=== PATIENT | female | born 1975 | race Caucasian/White ===

== ENCOUNTER 2016-05-22 10:58 | Emergency (ER) | payer OTHER ==
[2016-05-22] MEDS ORDERED: ONDANSETRON 4 MG TAB.RAPDIS PO ONE (11:20)
[2016-05-22] MEDS ORDERED: NORMAL SALINE 1000 ML 2,000 ML IV ONE (11:20)
--- NOTE | 2016-05-22 11:20 | ER Document Report ---
ED Medical Screen (RME) - General Chief Complaint: Vomiting Stated Complaint: NAUSEA/VOMITING Time seen by provider: 11:19 Mode of Arrival: Ambulatory Information source: Patient Notes: 40-year-old female with nausea and vomiting since last evening. She started feeling ill in the morning. She has no urinary symptoms. She has chills without fever. No specific abdominal pain but she does point to her epigastrium. No abdominal surgeries. No alcohol last night. She is a smoker. TRAVEL OUTSIDE OF THE [place] IN LAST 30 DAYS: No - Related Data Allergies/Adverse Reactions: Sulfa (Sulfonamide Antibiotics) Allergy (Verified 04/24/16 12:59) Past Medical History - Past Medical History Cardiac Medical History: Reports: Hx Hypertension Past Surgical History: Reports: Hx Breast Surgery - LIFT, Hx Dilation and Curettage, Hx Gynecologic Surgery - uterine polyp, Hx Myringotomy - Immunizations Hx Diphtheria, Pertussis, Tetanus Vaccination: Yes
[2016-05-22 12:06] LABS: ABSOLUTE LYMPHOCYTES (AUTO) 0.6 10^3/uL (0.5-4.7); ABSOLUTE MONOCYTES (AUTO) 0.1 10^3/uL (0.1-1.4); ABSOLUTE NEUT (AUTO) 5.8 10^3/uL (1.7-8.2); BASOPHILS % (AUTO) 0.2 % (0-2); HEMATOCRIT 44.4 % (36.0-47.0); HEMOGLOBIN 15.6 g/dL (12.0-15.5); HGB HCT DIFFERENCE 2.4; LYMPHOCYTES % (AUTO) 9.3 % (13-45); MEAN CORPUSCULAR HEMOGLOBIN 34.5 pg (27.0-33.4); MEAN CORPUSCULAR HGB CONC 35.2 g/dL (32.0-36.0); MEAN CORPUSCULAR VOLUME 98 fl (80-97); MONOCYTES % (AUTO) 2.1 % (3-13); RED BLOOD COUNT 4.52 10^6/uL (3.72-5.28); RED CELL DISTRIBUTION WIDTH 12.8 % (11.5-14.0); SEGMENTED NEUTROPHILS % (AUTO) 88.4 % (42-78); WHITE BLOOD COUNT 6.5 10^3/uL (4.0-10.5)
[2016-05-22 12:09] LABS: AMORPHOUS SEDIMENT,URINE TRACE /HPF; APPEARANCE,URINE CLOUDY; BILIRUBIN,URINE SMALL (NEGATIVE); GLUCOSE, URINE 50 mg/dL (NEGATIVE); KETONES,URINE 80 mg/dL (NEGATIVE); LEUKOCYTE ESTERASE,URINE NEGATIVE (NEGATIVE); NITRITE,URINE NEGATIVE (NEGATIVE); PROTEIN,URINE 100 mg/dL (NEGATIVE); URINE SPECIFIC GRAVITY 1.032; UROBILINOGEN,URINE NEGATIVE mg/dL (<2.0)
--- NOTE | 2016-05-22 12:10 | ER Document Report ---
ED GI/ - General Chief Complaint: Vomiting Stated Complaint: NAUSEA/VOMITING Mode of Arrival: Ambulatory Information source: Patient TRAVEL OUTSIDE OF THE [place] IN LAST 30 DAYS: No - HPI Patient complains to provider of: Vomiting Onset: Yesterday - LAST PM Timing/Duration: Sudden Quality of pain: Cramping, Dull Severity at maximum: Mild Severity in ED: Mild Context: denies: Bad food, Lifting, Out of the country travel, , Recent trauma Location: Epigastric Vaginal bleeding (Compared to normal period): None Menstrual period history: denies: Associated symptoms: Nausea, Vomiting. denies: Constipation, Diarrhea, Dysuria , Fever Exacerbated by: Food Relieved by: Denies - Related Data Allergies/Adverse Reactions: Sulfa (Sulfonamide Antibiotics) Allergy (Verified 04/24/16 12:59) Past Medical History - General Information source: Patient - Social History Smoking Status: Never Smoker Cigarette use (# per day): No Chew tobacco use (# tins/day): No Frequency of alcohol use: None Drug Abuse: None Lives with: Spouse/Significant other Family History: Reviewed & Not Pertinent - Past Medical History Cardiac Medical History: Reports: Hx Hypertension Pulmonary Medical History: Reports: None EENT Medical History: Reports: None Neurological Medical History: Reports: None Endocrine Medical History: Reports: None Renal/ Medical History: Reports: None Malignancy Medical History: Reports: None GI Medical History: Reports: None Musculoskeltal Medical History: Reports None Psychiatric Medical History: Reports: None Past Surgical History: Reports: Hx Breast Surgery - LIFT, Hx Dilation and Curettage, Hx Gynecologic Surgery - uterine polyp, Hx Myringotomy - Immunizations Hx Diphtheria, Pertussis, Tetanus Vaccination: Yes Review of Systems - Review of Systems Constitutional: No symptoms reported EENT: No symptoms reported Cardiovascular: No symptoms reported Respiratory: No symptoms reported Gastrointestinal: See HPI Genitourinary: No symptoms reported Female Genitourinary: No symptoms reported Musculoskeletal: No symptoms reported Skin: No symptoms reported Neurological/Psychological: No symptoms reported Physical Exam - Vital signs Vitals: Temp Pulse Resp BP Pulse Ox 98.1 F 85 18 187/113 H 100 05/22/16 11:03 05/22/16 11:03 05/22/16 11:03 05/22/16 11:03 05/22/16 11:03 Interpretation: Hypertensive - General General appearance: Appears well, Alert In distress: None - HEENT Head: Normocephalic Eyes: Normal Conjunctiva: Normal Ears: Normal Nasal: Normal Mouth/Lips: Normal Mucous membranes: Dry Pharynx: Normal Neck: Normal - Respiratory Respiratory status: No respiratory distress - Cardiovascular Rhythm: Regular - Abdominal Inspection: Normal Distension: No distension Bowel sounds: Hypoactive - Extremities General upper extremity: Normal inspection General lower extremity: Normal inspection - Neurological Neuro grossly intact: Yes Cognition: Normal Orientation: AAOx4 - Psychological Associated symptoms: Normal affect, Normal mood - Skin Skin Temperature: Warm Skin Moisture: Dry Skin Color: Normal Skin Turgor: Elastic Course - Re-evaluation Re-evalutation: 05/22/16 14:02 Patient reports she feels a little better. Still has some nausea. Still thirsty. Will give another liter of IV fluid and or Zofran then discharged to home. Lab results discussed. - Vital Signs Vital signs: Temp Pulse Resp BP Pulse Ox 98.4 F 81 16 157/87 H 100 05/22/16 14:27 05/22/16 14:27 05/22/16 14:27 05/22/16 14:27 05/22/16 14:27 - Laboratory Result Diagrams: 05/22/16 11:45 05/22/16 11:45 Laboratory results interpreted by me: 05/22/16 05/22/16 05/22/16 11:45 11:45 11:45 Hgb 15.6 H MCV 98 H MCH 34.5 H Seg Neutrophils % 88.4 H Lymphocytes % 9.3 L Monocytes % 2.1 L Glucose 140 H Calcium 10.5 H Urine Protein 100 H Urine Glucose (UA) 50 H Urine Ketones 80 H Urine Bilirubin SMALL H Discharge - Discharge Clinical Impression: Gastroenteritis, Dehydration Vomiting Qualifiers: Vomiting type: unspecified Vomiting Intractability: non-intractable Nausea presence: with nausea Qualified Code(s): R11.2 - Nausea with vomiting, unspecified Hypertension Qualifiers: Hypertension type: essential hypertension Qualified Code(s): I10 - Essential ( primary) hypertension Condition: Stable Disposition: HOME, SELF-CARE Instructions: Clear Liquid Diet ([facility]), Antinausea Medication ([facility]), Gastroenteritis (adult) ([facility]) Additional Instructions: CLEAR LIQUID DIET UNTIL IMPROVED, THEN GRADUALLY ADVANCE DIET. ZOFRAN FOR NAUSEA CONTROL IF NEEDED. FOLLOW UP WITH YOUR PRIMARY CARE PROVIDER OR RETURN TO E.R. IF PROBLEMS. Prescriptions: Promethazine HCl 25 mg PO Q4HP PRN #14 tablet PRN Reason: For Nausea/Vomiting Ondansetron [Zofran Odt 4 mg Tablet] 1 - 2 tab PO Q4H #10 tab.janay Referrals: MASSIEL SMITHP [Primary Care Provider] - Follow up as needed
[2016-05-22 12:28] LABS: ALANINE AMINOTRANSFERASE 34 U/L (9-52); ALBUMIN 4.9 g/dL (3.5-5.0); ALKALINE PHOSPHATASE 83 U/L (38-126); ANION GAP 14 (5-19); ASPARTATE AMINO TRANSFERASE 32 U/L (14-36); BILIRUBIN,TOTAL 1.2 mg/dL (0.2-1.3); BLOOD UREA NITROGEN 15 mg/dL (7-20); CALCIUM 10.5 mg/dL (8.4-10.2); CARBON DIOXIDE 26 mmol/L (22-30); CHLORIDE 100 mmol/L (98-107); CREATININE RESULT 0.84 mg/dL (0.52-1.25); GLUCOSE 140 mg/dL (75-110); LIPASE 46.1 U/L (23-300); POTASSIUM 4.1 mmol/L (3.6-5.0); SODIUM 140.4 mmol/L (137-145)
[2016-05-22] MEDS ORDERED: ONDANSETRON HCL INJ/PF 4 MG/2 ML SDV IV ONE ×2 (12:36→14:03)
[2016-05-22] MEDS ORDERED: NORMAL SALINE 1000 ML 1,000 ML IV ONE (14:03)
[2016-05-22] MEDS ORDERED: CLONIDINE HCL 0.2 MG TABLET PO ONE (14:09)
[2016-05-22 14:35] VITALS: BP 157/87
== END 2016-05-22 16:47 | disposition home or self-care (01) ==
LOC: ER 10:58
DX: K52.9 Noninfective gastroenteritis and colitis, unspecified (principal); R11.2 Nausea with vomiting, unspecified; E86.0 Dehydration; I10 Essential (primary) hypertension
CPT/HCPCS: 96376; 99284; 96361; 96374; 36415; 87086; 83690; 84703; 85025; 80053; 81001; S0119; J2405; J7030

== ENCOUNTER 2016-06-01 11:53 | Emergency (ER) | payer OTHER ==
[2016-06-01] MEDS ORDERED: ONDANSETRON 4 MG TAB.RAPDIS PO ONE (12:04)
--- NOTE | 2016-06-01 12:04 | ER Document Report ---
ED Medical Screen (RME) - General Stated Complaint: NAUSEA/VOMITING Notes: 40 yo female c/o fever, cold s/s , n/v x 2 days. + hx/o HTN. BP elevated at RME. took BP med this morning, but vomited shortly after taking med. no abdominal pain. no urinary symptoms TRAVEL OUTSIDE OF THE [place] IN LAST 30 DAYS: No - Related Data Allergies/Adverse Reactions: Sulfa (Sulfonamide Antibiotics) Allergy (Verified 04/24/16 12:59) Past Medical History - Past Medical History Cardiac Medical History: Reports: Hx Hypertension Past Surgical History: Reports: Hx Breast Surgery - LIFT, Hx Dilation and Curettage, Hx Gynecologic Surgery - uterine polyp, Hx Myringotomy - Immunizations Hx Diphtheria, Pertussis, Tetanus Vaccination: Yes
[2016-06-01 12:47] LABS: ABSOLUTE LYMPHOCYTES (AUTO) 0.7 10^3/uL (0.5-4.7); ABSOLUTE MONOCYTES (AUTO) 0.5 10^3/uL (0.1-1.4); ABSOLUTE NEUT (AUTO) 4.6 10^3/uL (1.7-8.2); BASOPHILS % (AUTO) 0.2 % (0-2); HEMATOCRIT 45.3 % (36.0-47.0); HGB HCT DIFFERENCE 2.7; LYMPHOCYTES % (AUTO) 11.6 % (13-45); MEAN CORPUSCULAR HEMOGLOBIN 34.6 pg (27.0-33.4); MEAN CORPUSCULAR HGB CONC 35.4 g/dL (32.0-36.0); MEAN CORPUSCULAR VOLUME 98 fl (80-97); MONOCYTES % (AUTO) 9.2 % (3-13); RED BLOOD COUNT 4.63 10^6/uL (3.72-5.28); RED CELL DISTRIBUTION WIDTH 12.6 % (11.5-14.0); WHITE BLOOD COUNT 5.8 10^3/uL (4.0-10.5)
[2016-06-01 13:07] LABS: ALANINE AMINOTRANSFERASE 28 U/L (9-52); ALBUMIN 4.6 g/dL (3.5-5.0); ALKALINE PHOSPHATASE 82 U/L (38-126); ANION GAP 16 (5-19); ASPARTATE AMINO TRANSFERASE 45 U/L (14-36); BILIRUBIN,TOTAL 0.8 mg/dL (0.2-1.3); BLOOD UREA NITROGEN 17 mg/dL (7-20); CALCIUM 10.1 mg/dL (8.4-10.2); CARBON DIOXIDE 26 mmol/L (22-30); CHLORIDE 97 mmol/L (98-107); GLUCOSE 118 mg/dL (75-110); POTASSIUM 3.8 mmol/L (3.6-5.0); SODIUM 138.6 mmol/L (137-145)
[2016-06-01 14:10] LABS: APPEARANCE,URINE CLOUDY; BILIRUBIN,URINE NEGATIVE (NEGATIVE); GLUCOSE, URINE NEGATIVE (NEGATIVE); KETONES,URINE 20 mg/dL (NEGATIVE); LEUKOCYTE ESTERASE,URINE SMALL (NEGATIVE); NITRITE,URINE NEGATIVE (NEGATIVE); PROTEIN,URINE 100 mg/dL (NEGATIVE); URINE SPECIFIC GRAVITY 1.027; UROBILINOGEN,URINE NEGATIVE mg/dL (<2.0)
--- NOTE | 2016-06-01 14:13 | ER Document Report ---
ED General - General Chief Complaint: Nausea/Vomiting Stated Complaint: NAUSEA/VOMITING Mode of Arrival: Ambulatory Information source: Patient Notes: 40 yr old female presents with complaitnso f nausea and vomiting for 2 day duration. 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 pt notes she took phenergan at home yesterday which resolvedthe vomiting but then she had vomiting again today. TRAVEL OUTSIDE OF THE [place] IN LAST 30 DAYS: No - HPI Onset: Other - 3 day duration Onset/Duration: Persistent Quality of pain: No pain Severity: Mild Pain Level: Denies Associated symptoms: Nausea, Vomiting Exacerbated by: Denies Relieved by: Denies Similar symptoms previously: Yes Recently seen / treated by doctor: Yes - Related Data Allergies/Adverse Reactions: Sulfa (Sulfonamide Antibiotics) Allergy (Verified 06/01/16 12:03) Past Medical History - Social History Smoking Status: Current Every Day Smoker Cigarette use (# per day): No Chew tobacco use (# tins/day): No Smoking Education Provided: No Frequency of alcohol use: None Drug Abuse: None Family History: Reviewed & Not Pertinent Patient has suicidal ideation: No Patient has homicidal ideation: No - Past Medical History Cardiac Medical History: Reports: Hx Hypertension Past Surgical History: Reports: Hx Breast Surgery - LIFT, Hx Dilation and Curettage, Hx Gynecologic Surgery - uterine polyp, Hx Myringotomy - Immunizations Hx Diphtheria, Pertussis, Tetanus Vaccination: Yes Review of Systems - Review of Systems Notes: REVIEW OF SYSTEMS: CONSTITUTIONAL : Denies fever, chills, or sweats. Denies recent illness. EENT: Denies eye, ear, throat, or mouth pain or symptoms. Denies nasal or sinus congestion or discharge. Denies throat, tongue, or mouth swelling or difficulty swallowing. CARDIOVASCULAR: Denies chest pain. Denies palpitations or racing or irregular heart beat. Denies ankle edema. RESPIRATORY: Denies cough, cold, or chest congestion. Denies shortness of breath, difficulty breathing, or wheezing. GASTROINTESTINAL: Admits to nausea vomiting. GENITOURINARY: Denies difficulty urinating, painful urination, burning, frequency, blood in urine, or discharge. FEMALE GENITOURINARY: Denies vaginal bleeding, heavy or abnormal periods, irregular periods. Denies vaginal discharge or odor. MUSCULOSKELETAL: Denies back or neck pain or stiffness. Denies joint pain or swelling. SKIN: Denies rash, lesions or sores. HEMATOLOGIC : Denies easy bruising or bleeding. LYMPHATIC: Denies swollen, enlarged glands. NEUROLOGICAL: Denies confusion or altered mental status. Denies passing out or loss of consciousness. Denies dizziness or lightheadedness. Denies headache. Denies weakness or paralysis or loss of use of either side. Denies problems with gait or speech. Denies sensory loss, numbness, or tingling. Denies seizures. PSYCHIATRIC: Denies anxiety or stress. Denies depression, suicidal ideation, or homicidal ideation. ALL OTHER SYSTEMS REVIEWED AND NEGATIVE. Dictation was performed using [employer] voice recognition software PHYSICAL EXAMINATION: GENERAL: Well-appearing, well-nourished and in no acute distress. HEAD: Atraumatic, normocephalic. EYES: Pupils equal round and reactive to light, extraocular movements intact, conjunctiva are normal. ENT: Nares patent, oropharynx clear without exudates. Moist mucous membranes. NECK: Normal range of motion, supple without lymphadenopathy LUNGS: Breath sounds clear to auscultation bilaterally and equal. No wheezes rales or rhonchi. HEART: Regular rate and rhythm without murmurs ABDOMEN: Soft, nontender, nondistended abdomen. No guarding, no rebound. No masses appreciated. Female : deferred Musculoskeletal: Normal range of motion, no pitting or edema. No cyanosis. NEUROLOGICAL: Cranial nerves grossly intact. Normal speech, normal gait. Normal sensory, motor exams PSYCH: Normal mood, normal affect. SKIN: Warm, Dry, normal turgor, no rashes or lesions noted. Physical Exam - Vital signs Vitals: Temp Pulse Resp BP Pulse Ox 98.3 F 102 H 20 178/123 H 100 06/01/16 12:03 06/01/16 12:03 06/01/16 12:03 06/01/16 12:03 06/01/16 12:03 Course - Vital Signs Vital signs: Temp Pulse Resp BP Pulse Ox 99.7 F 83 16 132/86 H 100 06/01/16 14:24 06/01/16 14:24 06/01/16 14:24 06/01/16 14:24 06/01/16 14:24 06/01/16 16:37 p notes that symptoms have resolved with 2 oral phenergan, i will dc home with suppository and pt is otherwise stable with no pain. pt ntoed to have mild ketonuria After performing a Medical Screening Examination, I estimate there is LOW risk for ACUTE APPENDICITIS, BOWEL OBSTRUCTION, ACUTE CHOLECYSTITIS, PERFORATED DIVERTICULITIS, INCARCERATED HERNIA, PANCREATITIS, PELVIC INFLAMMATORY DISEASE, PERFORATED ULCER, ECTOPIC , or TUBO-OVARIAN ABSCESS, thus I consider the discharge disposition reasonable. Also, there is no evidence or peritonitis , sepsis, or toxicity. The patient and I have discussed the diagnosis and risks , and we agree with discharging home with close follow-up with the understanding that symptoms and presentations can change. We also discussed returning to the Emergency Department immediately if new or worsening symptoms occur. We have discussed the symptoms which are most concerning (e.g., bloody stool, fever, changing or worsening pain, vomiting) that necessitate immediate return. - Laboratory Result Diagrams: 06/01/16 12:12 06/01/16 12:12 Laboratory results interpreted by me: 06/01/16 06/01/16 06/01/16 12:12 12:12 13:13 Hgb 16.0 H MCV 98 H MCH 34.6 H Seg Neutrophils % 79.0 H Lymphocytes % 11.6 L Chloride 97 L Glucose 118 H AST 45 H Urine Protein 100 H Urine Ketones 20 H Urine Blood LARGE H Ur Leukocyte Esterase SMALL H Discharge - Discharge Clinical Impression: Ketonuria Nausea & vomiting Qualifiers: Vomiting type: unspecified Vomiting Intractability: non-intractable Qualified Code(s): R11.2 - Nausea with vomiting, unspecified Condition: Stable Disposition: HOME, SELF-CARE Instructions: Antinausea Medication ([facility]) Additional Instructions: Please excuse from work tomorrow Prescriptions: Promethazine HCl 25 mg RC Q6 #20 supp.rect Forms: Return to Work Referrals: MASSIEL SMITH [Primary Care Provider] - Follow up tomorrow
[2016-06-01 14:35] VITALS: BP 132/86
== END 2016-06-01 14:25 | disposition home or self-care (01) ==
LOC: ER 11:53
DX: R11.2 Nausea with vomiting, unspecified (principal); R82.4 Acetonuria; I10 Essential (primary) hypertension; F17.200 Nicotine dependence, unspecified, uncomplicated; Z88.2 Allergy status to sulfonamides
CPT/HCPCS: 99284; 36415; 85025; 80053; 81001; S0119

== ENCOUNTER 2017-12-04 13:41 | Emergency (ER) | payer OTHER ==
[2017-12-04] MEDS ORDERED: NORMAL SALINE 1000 ML 1,000 ML IV ONE ×2 (14:31→16:26)
--- NOTE | 2017-12-04 14:31 | ER Document Report ---
ED Medical Screen (RME) - General Chief Complaint: Abdominal Pain Stated Complaint: NAUSEA Time Seen by Provider: 12/04/17 14:25 Notes: RAPID MEDICAL EVALUATION DISCLOSURE I have seen this patient as part of a Rapid Medical Evaluation and, if applicable, placed any initially appropriate orders. The patient will be seen and fully evaluated, including a full history and physical exam, by a provider ( in Main ED or Fast Track) when a room becomes available. 42-year-old female here with complaints of numerous episodes of vomiting ongoing for the past 2 days. She developed some epigastric abdominal pain that started after several episodes of vomiting. She only has the pain when she vomits but otherwise does not have any pain. She has not had any diarrhea. Has tried Zofran and Phenergan with some relief. She has not had a bowel movement in several days but states that she believes it is because she has not been eating anything due to the nausea vomiting. Denies hematuria dysuria fevers chills. No known sick contacts. EXAM CTAB RRR No abdominal TTP TRAVEL OUTSIDE OF THE [place] IN LAST 30 DAYS: No - Related Data Allergies/Adverse Reactions: Sulfa (Sulfonamide Antibiotics) Allergy (Verified 12/04/17 13:42) Past Medical History - Social History Chew tobacco use (# tins/day): No Frequency of alcohol use: None Drug Abuse: None - Past Medical History Cardiac Medical History: Reports: Hx Hypertension Renal/ Medical History: Denies: Hx Peritoneal Dialysis Past Surgical History: Reports: Hx Breast Surgery - LIFT, Hx Dilation and Curettage, Hx Gynecologic Surgery - uterine polyp, Hx Myringotomy - Immunizations Hx Diphtheria, Pertussis, Tetanus Vaccination: Yes Physical Exam - Vital signs Vitals: Temp Pulse Resp BP Pulse Ox 98.5 F 93 18 153/108 H 100 12/04/17 13:49 12/04/17 13:49 12/04/17 13:49 12/04/17 13:49 12/04/17 13:49 Course - Vital Signs Vital signs: Temp Pulse Resp BP Pulse Ox 98.5 F 93 18 153/108 H 100 12/04/17 13:49 12/04/17 13:49 12/04/17 13:49 12/04/17 13:49 12/04/17 13:49 Doctor's Discharge - Discharge Referrals: MASSIEL SMITH FNP [Primary Care Provider] - Follow up as needed
[2017-12-04 15:34] LABS: ABSOLUTE LYMPHOCYTES (AUTO) 1.3 10^3/uL (0.5-4.7); ABSOLUTE MONOCYTES (AUTO) 0.4 10^3/uL (0.1-1.4); ABSOLUTE NEUT (AUTO) 4.4 10^3/uL (1.7-8.2); BASOPHILS % (AUTO) 0.4 % (0-2); HEMOGLOBIN 14.8 g/dL (12.0-15.5); LYMPHOCYTES % (AUTO) 21.6 % (13-45); MEAN CORPUSCULAR HEMOGLOBIN 35.3 pg (27.0-33.4); MEAN CORPUSCULAR HGB CONC 35.3 g/dL (32.0-36.0); MEAN CORPUSCULAR VOLUME 100 fl (80-97); MONOCYTES % (AUTO) 6.4 % (3-13); PLATELET COUNT 218 10^3/uL (150-450); RED CELL DISTRIBUTION WIDTH 13.4 % (11.5-14.0); SEGMENTED NEUTROPHILS % (AUTO) 71.6 % (42-78); TOTAL CELLS COUNTED % (AUTO) 100 %; WHITE BLOOD COUNT 6.2 10^3/uL (4.0-10.5)
[2017-12-04] MEDS ORDERED: ONDANSETRON HCL INJ/PF 4 MG/2 ML SDV IV ONE (15:50)
--- NOTE | 2017-12-04 15:50 | ER Document Report ---
ED General - General Chief Complaint: Abdominal Pain Stated Complaint: NAUSEA Time Seen by Provider: 12/04/17 14:25 TRAVEL OUTSIDE OF THE [place] IN LAST 30 DAYS: No - HPI Notes: Note patient seen by the physician in triage, studies ordered prior to me evaluating the patient. 42-year-old female presents with 2 days gradual onset vomiting and not feeling well. Describes some associated abdominal discomfort in her mid abdomen. No diarrhea. No fever, chills or sweats. Antecedent to this she did stop taking her omeprazole. No recent travel, recent antibiotic use. is ill but he has diarrhea not vomiting. Nonradiating. No other modifying factors, no other associated symptoms, no other provocative or palliative factors. - Related Data Allergies/Adverse Reactions: Sulfa (Sulfonamide Antibiotics) Allergy (Verified 12/04/17 13:42) Past Medical History - Social History Smoking Status: Never Smoker Chew tobacco use (# tins/day): No Frequency of alcohol use: None Drug Abuse: None Family History: Reviewed & Not Pertinent Patient has suicidal ideation: No Patient has homicidal ideation: No - Past Medical History Cardiac Medical History: Reports: Hx Hypertension Renal/ Medical History: Denies: Hx Peritoneal Dialysis Past Surgical History: Reports: Hx Breast Surgery - LIFT, Hx Dilation and Curettage, Hx Gynecologic Surgery - uterine polyp, Hx Myringotomy - Immunizations Hx Diphtheria, Pertussis, Tetanus Vaccination: Yes Review of Systems - Review of Systems Notes: Review of systems as in the history of present illness, otherwise negative x 10 systems. Physical Exam - Vital signs Vitals: Temp Pulse Resp BP Pulse Ox 98.5 F 93 18 153/108 H 100 12/04/17 13:49 12/04/17 13:49 12/04/17 13:49 12/04/17 13:49 12/04/17 13:49 - Notes Notes: General: Well developed . Mucosa dry HEENT: Normocephalic, atraumatic. Pupils equal round reactive to light. No JVD. Chest: No trauma. Respiratory: Good air exchange, normal excursion. Cardiac: Regular rhythm. No murmurs or gallops. Abdomen: Soft, benign. Nondistended. Nontender. Back: No asymmetry or gross abnormality. Motor: Grossly normal power and tone. Neurologic: Alert, nonfocal. Cranial nerves II-12 are intact. Sensation intact. Vascular: Well perfused. Normal peripheral pulses. Skin: No petechiae or purpura. Course - Re-evaluation Re-evalutation: 12/04/17 15:50 Nontoxic-appearing 42-year-old female with a benign abdominal exam, 2 days of vomiting. May be viral illness, gastritis, ulcer disease or other etiology. Severe pancreatitis or biliary tract disease. Plan to assess labs, treat with fluids, antiemetics, reassess. 12/04/17 16:27 Labs reviewed, all grossly unremarkable with the exception of some slight elevation in indices that are consistent with dehydration. Patient has had serial examinations and is a benign abdomen. Receiving additional fluids otherwise will follow up with her primary care physician over 24 hours, return if worsening. Given a prescription for Phenergan suppositories at her request, will continue to take H2 blockers. - Vital Signs Vital signs: Temp Pulse Resp BP Pulse Ox 98.5 F 93 18 153/108 H 100 12/04/17 13:49 12/04/17 13:49 12/04/17 13:49 12/04/17 13:49 12/04/17 13:49 - Laboratory Result Diagrams: 12/04/17 14:55 12/04/17 14:55 Laboratory results interpreted by me: 12/04/17 12/04/17 12/04/17 14:55 14:55 14:55 MCV 100 H MCH 35.3 H Potassium 3.4 L Chloride 91 L Glucose 116 H Total Bilirubin 1.5 H Direct Bilirubin 0.6 H AST 69 H Total Protein 8.3 H Urine Ketones 20 H Urine Urobilinogen 2.0 H Discharge - Discharge Clinical Impression: Abdominal pain Qualifiers: Abdominal location: upper abdomen, unspecified Qualified Code(s): R10.10 - Upper abdominal pain, unspecified Vomiting Qualifiers: Vomiting type: unspecified Vomiting Intractability: non-intractable Nausea presence: with nausea Qualified Code(s): R11.2 - Nausea with vomiting, unspecified Disposition: HOME, SELF-CARE Instructions: Abdominal Pain ([facility]), Vomiting ([facility]) Prescriptions: Ondansetron [Zofran Odt 4 mg Tablet] 1 - 2 tab PO Q4HP PRN #10 tab.rapdis PRN Reason: Promethazine HCl [Phenergan 25 mg Supp.rect] 1 supp ME Q6H #12 supp.rect Referrals: MASSIEL SMITH FNP [Primary Care Provider] - Follow up as needed
[2017-12-04] MEDS ORDERED: FAMOTIDINE INJ/PF 20 MG/2 ML SDV IV ONE (15:51)
[2017-12-04 15:59] LABS: ALANINE AMINOTRANSFERASE 37 U/L (9-52); ALBUMIN 4.8 g/dL (3.5-5.0); ALKALINE PHOSPHATASE 73 U/L (38-126); ANION GAP 19 (5-19); ASPARTATE AMINO TRANSFERASE 69 U/L (14-36); BILIRUBIN,DIRECT 0.6 mg/dL (0.0-0.4); BILIRUBIN,TOTAL 1.5 mg/dL (0.2-1.3); BLOOD UREA NITROGEN 17 mg/dL (7-20); CALCIUM 9.8 mg/dL (8.4-10.2); CARBON DIOXIDE 28 mmol/L (22-30); CHLORIDE 91 mmol/L (98-107); GLUCOSE 116 mg/dL (75-110); LIPASE 110.9 U/L (23-300); POTASSIUM 3.4 mmol/L (3.6-5.0); TOTAL PROTEIN 8.3 g/dL (6.3-8.2)
[2017-12-04 16:00] LABS: APPEARANCE,URINE SLIGHTLY-CLOUDY; BILIRUBIN,URINE NEGATIVE (NEGATIVE); COLOR,URINE AMBER; GLUCOSE, URINE NEGATIVE (NEGATIVE); KETONES,URINE 20 mg/dL (NEGATIVE); LEUKOCYTE ESTERASE,URINE NEGATIVE (NEGATIVE); NITRITE,URINE NEGATIVE (NEGATIVE); PROTEIN,URINE NEGATIVE (NEGATIVE); URINE SPECIFIC GRAVITY 1.023
[2017-12-04 18:22] VITALS: BP 150/99
== END 2017-12-04 18:23 | disposition home or self-care (01) ==
LOC: ER 13:41
DX: R10.10 Upper abdominal pain, unspecified (principal); R11.2 Nausea with vomiting, unspecified; I10 Essential (primary) hypertension; Z88.2 Allergy status to sulfonamides
CPT/HCPCS: 99284; 96361; 96374; 36415; 83690; 85025; 80053; 81001; J7030; S0028

== ENCOUNTER 2018-02-22 09:59 | Emergency (ER) | payer OTHER ==
[2018-02-22] MEDS ORDERED: NORMAL SALINE 1000 ML 1,000 ML IV ONE (10:25)
[2018-02-22] MEDS ORDERED: METOCLOPRAMIDE HCL INJ/PF 10 MG/2 ML SDV IV ONE (10:26)
--- NOTE | 2018-02-22 10:27 | ER Document Report ---
ED Medical Screen (RME) - General Chief Complaint: Nausea/Vomiting Stated Complaint: NAUSEA,VOMITING Time Seen by Provider: 02/22/18 10:17 Notes: 42-year-old female patient with onset yesterday nausea vomiting without diarrhea. No fever. She did try to have her Zofran this morning without benefit. Last menstrual period was near the end of January. She has had several visits in the last 1-2 years for nausea and vomiting. I have greeted and performed a rapid initial assessment of this patient. A comprehensive ED assessment and evaluation of the patient, analysis of test results and completion of the medical decision making process will be conducted by additional ED providers. TRAVEL OUTSIDE OF THE [place] IN LAST 30 DAYS: No - Priya November 2017 - Related Data Allergies/Adverse Reactions: Sulfa (Sulfonamide Antibiotics) Allergy (Verified 02/22/18 10:00) Past Medical History - Social History Frequency of alcohol use: Social Drug Abuse: None - Past Medical History Cardiac Medical History: Reports: Hx Hypertension Renal/ Medical History: Denies: Hx Peritoneal Dialysis Past Surgical History: Reports: Hx Breast Surgery - LIFT, Hx Dilation and Curettage, Hx Gynecologic Surgery - uterine polyp, Hx Myringotomy - Immunizations Hx Diphtheria, Pertussis, Tetanus Vaccination: Yes Physical Exam - Vital signs Vitals: Temp Pulse Resp BP Pulse Ox 97.9 F 72 14 170/107 H 100 02/22/18 10:04 02/22/18 10:04 02/22/18 10:04 02/22/18 10:04 02/22/18 10:04 Course - Vital Signs Vital signs: Temp Pulse Resp BP Pulse Ox 97.9 F 72 14 170/107 H 100 02/22/18 10:04 02/22/18 10:04 02/22/18 10:04 02/22/18 10:04 02/22/18 10:04 Doctor's Discharge - Discharge Referrals: MASSIEL SMITH FNP [Primary Care Provider] - Follow up as needed
[2018-02-22] MEDS ORDERED: KETOROLAC TROMETHAMINE INJ/PF 30 MG/1 ML SDV IV ONE (11:06)
--- NOTE | 2018-02-22 11:09 | ER Document Report ---
ED GI/ - General Chief Complaint: Nausea/Vomiting Stated Complaint: NAUSEA,VOMITING Time Seen by Provider: 02/22/18 10:17 Mode of Arrival: Ambulatory Information source: Patient Notes: Chief complaint: abdominal pain: History of complain:( obtained from----patient) 42 years old female presents today with nearly 2-day history of abdominal pain particularly in the upper abdomen over the epigastrium and right upper quadrant associated with nausea and vomited a few times. Did not have any bowel movement for the last 3 days. Prior to that apparently irregular. Denies any fever chills or other constitutional symptoms. Denies any dysuria frequency urgency. Denies being . Onset: Gradual Duration: 2-3 days Severity: Mild to moderate Quality: Crampy Context: Unknown Exacerbating factor and relieving factors: Unknown REVIEW OF SYSTEMS: CONSTITUTIONAL : Denies fever, chills, or sweats. Denies recent illness. EENT: Denies eye, ear, throat, or mouth pain or symptoms. Denies nasal or sinus congestion or discharge. Denies throat, tongue, or mouth swelling or difficulty swallowing. CARDIOVASCULAR: Denies chest pain. Denies palpitations or racing or irregular heart beat. Denies ankle edema. RESPIRATORY: Denies cough, cold, or chest congestion. Denies shortness of breath, difficulty breathing, or wheezing. GASTROINTESTINAL: Denies distention. Denies nausea, vomiting, or diarrhea. Denies blood in vomitus, stools, or per rectum. Denies black, tarry stools. Denies constipation. GENITOURINARY: Denies difficulty urinating, painful urination, burning, frequency, blood in urine, or discharge. FEMALE GENITOURINARY: Denies vaginal bleeding, heavy or abnormal periods, irregular periods. Denies vaginal discharge or odor. MUSCULOSKELETAL: Denies back or neck pain or stiffness. Denies joint pain or swelling. SKIN: Denies rash, lesions or sores. HEMATOLOGIC : Denies easy bruising or bleeding. LYMPHATIC: Denies swollen, enlarged glands. NEUROLOGICAL: Denies confusion or altered mental status. Denies passing out or loss of consciousness. Denies dizziness or lightheadedness. Denies headache. Denies weakness or paralysis or loss of use of either side. Denies problems with gait or speech. Denies sensory loss, numbness, or tingling. Denies seizures. PSYCHIATRIC: Denies anxiety or stress. Denies depression, suicidal ideation, or homicidal ideation. ALL OTHER SYSTEMS REVIEWED AND NEGATIVE. PHYSICAL EXAMINATION: GENERAL: Well-appearing, well-nourished and in no acute distress. HEAD: Atraumatic, normocephalic. EYES: Pupils equal round and reactive to light, extraocular movements intact, conjunctiva are normal. ENT: Nares patent, oropharynx clear without exudates. Moist mucous membranes. NECK: Normal range of motion, supple without lymphadenopathy LUNGS: Breath sounds clear to auscultation bilaterally and equal. No wheezes rales or rhonchi. HEART: Regular rate and rhythm without murmurs ABDOMEN: Soft, nontender, nondistended abdomen. No guarding, no rebound. No masses appreciated. Female : deferred Musculoskeletal: Normal range of motion, no pitting or edema. No cyanosis. NEUROLOGICAL: Cranial nerves grossly intact. Normal speech, normal gait. Normal sensory, motor exams PSYCH: Normal mood, normal affect. SKIN: Warm, Dry, normal turgor, no rashes or lesions noted. Dictation was performed using [employer] voice recognition software TRAVEL OUTSIDE OF THE [place] IN LAST 30 DAYS: No - [place] November 2017 - [facility] Notes: 02/22/18 11:08 Dictated 02/22/18 11:09 - Related Data Allergies/Adverse Reactions: Sulfa (Sulfonamide Antibiotics) Allergy (Verified 02/22/18 10:00) Past Medical History - Social History Smoking Status: Current Every Day Smoker Frequency of alcohol use: Social Drug Abuse: None Family History: Reviewed & Not Pertinent Patient has suicidal ideation: No Patient has homicidal ideation: No - Past Medical History Cardiac Medical History: Reports: Hx Hypertension Renal/ Medical History: Denies: Hx Peritoneal Dialysis Past Surgical History: Reports: Hx Breast Surgery - LIFT, Hx Dilation and Curettage, Hx Gynecologic Surgery - uterine polyp, Hx Myringotomy - Immunizations Hx Diphtheria, Pertussis, Tetanus Vaccination: Yes Review of Systems - Review of Systems Notes: Dictated Physical Exam - Vital signs Vitals: Temp Pulse Resp BP Pulse Ox 97.9 F 72 14 170/107 H 100 02/22/18 10:04 02/22/18 10:04 02/22/18 10:04 02/22/18 10:04 02/22/18 10:04 - Notes Notes: Dictated Course - Vital Signs Vital signs: Temp Pulse Resp BP Pulse Ox 97.9 F 72 13 162/111 H 100 02/22/18 10:04 02/22/18 10:04 02/22/18 11:31 02/22/18 11:31 02/22/18 11:31 - Laboratory Result Diagrams: 02/22/18 11:21 02/22/18 11:21 Laboratory results interpreted by me: 02/22/18 02/22/18 02/22/18 11:21 11:21 11:21 MCV 100 H MCH 35.1 H Seg Neutrophils % 80.0 H Potassium 3.3 L Chloride 97 L BUN 26 H Creatinine 1.58 H Est GFR ( Amer) 43 L Est GFR (Non-Af Amer) 36 L Glucose 148 H Calcium 10.3 H Direct Bilirubin 0.5 H Total Protein 8.7 H Urine Protein 30 H Urine Ketones TRACE H Urine Urobilinogen 2.0 H Ur Leukocyte Esterase SMALL H - Diagnostic Test Radiology reviewed: Image reviewed - When I reviewed the x-ray shows large amount of fecal material, Reports reviewed - Abdominal x-ray reported by radiologist as unremarkable Discharge - Discharge Clinical Impression: Acute abdominal pain, Constipation by delayed colonic transit GERD (gastroesophageal reflux disease) Qualifiers: Esophagitis presence: with esophagitis Qualified Code(s): K21.0 - Gastro- esophageal reflux disease with esophagitis Condition: Fair Disposition: HOME, SELF-CARE Instructions: Abdominal Pain ([facility]) Additional Instructions: Abdominal Pain There are many causes of abdominal pain. Pain can mean a serious problem requiring surgery (such as appendicitis). It can also be an innocent problem that goes away on its own (such as a viral infection). Often, time must pass to determine the cause of pain. The physician does not feel that hospitalization is necessary, at present. Things may change within the next 24 hours. Call the doctor or come back for re- examination if any problems occur, such as: (1) Pain that becomes more severe, steady, or becomes concentrated in one specific area. Also, pain that is more severe with movement or coughing. (2) Vomiting that persists or becomes more frequent. (3) Blood in the vomitus, urine, or bowel movements. Blood in the stool may have a tarry or black appearance. (4) Shaking chills or fever greater than 100 degrees F. (5) The abdomen becomes more distended or swollen. (6) Bowel movements cease. (7) Failure to improve as expected. Prescriptions: Dicyclomine HCl [Bentyl 10 mg Capsule] 1 cap PO TID #30 cap Lactulose [Cephulac Syrup 20 gm/30 ml Udcup] 20 gm PO BID #120 udc Sucralfate [Carafate Susp 1 Gm/10 Ml Udcup] 1 gm PO QIDP PRN #120 udc PRN Reason: Referrals: MASSIEL SMITH FNP [Primary Care Provider] - Follow up as needed
[2018-02-22 11:42] LABS: ABSOLUTE MONOCYTES (AUTO) 0.5 10^3/uL (0.1-1.4); ABSOLUTE NEUT (AUTO) 6.3 10^3/uL (1.7-8.2); BASOPHILS % (AUTO) 0.2 % (0-2); HEMATOCRIT 39.1 % (36.0-47.0); HEMOGLOBIN 13.8 g/dL (12.0-15.5); LYMPHOCYTES % (AUTO) 13.3 % (13-45); MEAN CORPUSCULAR HEMOGLOBIN 35.1 pg (27.0-33.4); MEAN CORPUSCULAR HGB CONC 35.2 g/dL (32.0-36.0); MEAN CORPUSCULAR VOLUME 100 fl (80-97); MONOCYTES % (AUTO) 6.5 % (3-13); PLATELET COUNT 264 10^3/uL (150-450); RED BLOOD COUNT 3.92 10^6/uL (3.72-5.28); TOTAL CELLS COUNTED % (AUTO) 100 %; WHITE BLOOD COUNT 7.8 10^3/uL (4.0-10.5)
[2018-02-22 11:47] LABS: BILIRUBIN,URINE NEGATIVE (NEGATIVE); GLUCOSE, URINE NEGATIVE (NEGATIVE); KETONES,URINE TRACE mg/dL (NEGATIVE); LEUKOCYTE ESTERASE,URINE SMALL (NEGATIVE); NITRITE,URINE NEGATIVE (NEGATIVE); PROTEIN,URINE 30 mg/dL (NEGATIVE); URINE SPECIFIC GRAVITY 1.024
[2018-02-22 11:48] LABS: APPEARANCE,URINE SLIGHTLY-CLOUDY; COLOR,URINE YELLOW
[2018-02-22 12:05] LABS: ALANINE AMINOTRANSFERASE 25 U/L (9-52); ALBUMIN 4.9 g/dL (3.5-5.0); ALKALINE PHOSPHATASE 79 U/L (38-126); ANION GAP 18 (5-19); ASPARTATE AMINO TRANSFERASE 31 U/L (14-36); BILIRUBIN,DIRECT 0.5 mg/dL (0.0-0.4); BLOOD UREA NITROGEN 26 mg/dL (7-20); CALCIUM 10.3 mg/dL (8.4-10.2); CARBON DIOXIDE 24 mmol/L (22-30); CHLORIDE 97 mmol/L (98-107); GLUCOSE 148 mg/dL (75-110); POTASSIUM 3.3 mmol/L (3.6-5.0); SODIUM 138.8 mmol/L (137-145); TOTAL PROTEIN 8.7 g/dL (6.3-8.2)
[2018-02-22] MEDS ORDERED: POTASSIUM CHLORIDE 10 MEQ CAPSULE.ER PO ONE (12:37)
--- NOTE | 2018-02-22 12:41 | RADIOLOGY REPORT (SQ) ---
EXAM DESCRIPTION: KUB/ABDOMEN (SINGLE VIEW) COMPLETED DATE/TIME: 02/22/2018 12:23 pm REASON FOR STUDY: Abdominal pain COMPARISON: None. NUMBER OF VIEWS: One view. TECHNIQUE: Supine radiographic image of the abdomen acquired. LIMITATIONS: None. FINDINGS: BOWEL GAS PATTERN: Normal bowel gas pattern. No dilated loops. CALCIFICATIONS: No suspicious calcifications. SOFT TISSUES: No gross mass or suggestion of organomegaly. HARDWARE: None in the abdomen. BONES: No acute fracture. No worrisome bone lesions. OTHER: No other significant finding. IMPRESSION: NO RADIOGRAPHIC EVIDENCE FOR ACUTE ABDOMINAL DISEASE. TECHNICAL DOCUMENTATION: JOB ID: [id number] [employer]- All Rights Reserved Reading location - IP/workstation name: [email or web address]
--- NOTE | 2018-02-22 15:18 | RADIOLOGY REPORT (SQ) ---
EXAM DESCRIPTION: U/S ABDOMEN LIMITED W/O DOP COMPLETED DATE/TIME: 02/22/2018 2:50 pm REASON FOR STUDY: Abdominal pain rule out cholecystitis COMPARISON: None. TECHNIQUE: Dynamic and static grayscale images acquired of the abdomen and recorded on PACS. Additio nal selected color Doppler and spectral images recorded. LIMITATIONS: None. FINDINGS: PANCREAS: No masses. Visualized pancreatic duct normal caliber. LIVER: No masses. Echotexture normal. LIVER VASCULATURE: Normal directional flow of the main portal vein. GALLBLADDER: No stones. Normal wall thickness. No pericholecystic fluid. ULTRASOUND-DETECTED THOMPSON'S SIGN: Negative. INTRAHEPATIC DUCTS AND COMMON DUCT: CBD and intrahepatic ducts normal caliber. No filling defects. INFERIOR VENA CAVA: Normal flow. AORTA: No aneurysm. RIGHT KIDNEY: 9.3 cm in length. Normal echogenicity. No solid or suspicious masses. No hydronephrosi s. No calcifications. PERITONEAL AND RIGHT PLEURAL SPACE: No ascites or effusions. OTHER: No other significant findings. IMPRESSION: NORMAL RIGHT UPPER QUADRANT ULTRASOUND. TECHNICAL DOCUMENTATION: JOB ID: [id number] [employer] All Rights Reserved Reading location - IP/workstation name: [email or web address]
[2018-02-22 16:18] VITALS: BP 140/90
== END 2018-02-22 16:19 | disposition home or self-care (01) ==
LOC: ER 09:59
DX: K59.09 Other constipation (principal); K21.0 Gastro-esophageal reflux disease with esophagitis; R11.2 Nausea with vomiting, unspecified; R10.10 Upper abdominal pain, unspecified; I10 Essential (primary) hypertension; F17.200 Nicotine dependence, unspecified, uncomplicated; Z88.2 Allergy status to sulfonamides
CPT/HCPCS: 99284; 96361; 96374; 96375; 36415; 84703; 85025; 80053; 81001; 74018; 76705; J1885; J2765; J7030

== ENCOUNTER 2018-06-27 10:31 | Inpatient (IN) | payer OTHER ==
[2018-06-27] MEDS ORDERED: NORMAL SALINE 1000 ML 1,000 ML IV ONE (11:28)
[2018-06-27] MEDS ORDERED: ONDANSETRON HCL INJ/PF 4 MG/2 ML SDV IV ONE (11:28)
[2018-06-27] MEDS ORDERED: PANTOPRAZOLE SODIUM 40 MG VIAL IV ONE (11:29)
--- NOTE | 2018-06-27 11:31 | ER Document Report ---
ED Medical Screen (RME) - General Chief Complaint: Chest Pain Stated Complaint: CHEST PAIN Time Seen by Provider: 06/27/18 11:21 Primary Care Provider: MASSIEL SMITH FNP [Primary Care Provider] - Follow up as needed Notes: Patient is a 42-year-old female that presents to the emergency department for chief complaint of epigastric abdominal pain with radiation to the right shoulder blade. Patient states she is had nausea and decreased appetite over the last several days, then started having epigastric and midsternal chest pain, that developed into radiation to the right shoulder blade this morning. She currently rates her pain as a 3 out of 10 describes as an aching sensation. . ROS: Other than noted above, the 12 point review of systems was reviewed with the patient and were negative, all pertinent findings are included in the HPI. PHYSICAL EXAMINATION: Vital signs reviewed. GENERAL: Patient appears uncomfortable, complaining of nausea HEAD: Atraumatic, normocephalic. EYES: Pupils equal round extraocular movements intact, conjunctiva are normal. ENT: Nares patent NECK: Normal range of motion CV: Heart regular rate and rhythm LUNGS: No respiratory distress Musculoskeletal: Normal range of motion NEUROLOGICAL: Normal speech PSYCH: Normal mood, normal affect. MDM: Patient seen and examined for rapid initial assessment. Vital signs reviewed. A comprehensive ED assessment and evaluation of the patient, analysis of test results and completion of the medical decision making process will be conducted by additional ED providers. *Note is created using voice recognition software and may contain spelling, syntax or grammatical errors. TRAVEL OUTSIDE OF THE [place] IN LAST 30 DAYS: No - Priya November 2017 - Related Data Allergies/Adverse Reactions: Sulfa (Sulfonamide Antibiotics) Allergy (Verified 06/27/18 10:39) Past Medical History - Past Medical History Cardiac Medical History: Reports: Hx Hypertension Renal/ Medical History: Denies: Hx Peritoneal Dialysis Past Surgical History: Reports: Hx Breast Surgery - LIFT, Hx Dilation and Curettage, Hx Gynecologic Surgery - uterine polyp, Hx Myringotomy - Immunizations Hx Diphtheria, Pertussis, Tetanus Vaccination: Yes Physical Exam - Vital signs Vitals: Temp Pulse Resp BP Pulse Ox 98.8 F 87 16 140/98 H 100 06/27/18 10:53 06/27/18 10:53 06/27/18 10:53 06/27/18 10:53 06/27/18 10:53 Course - Vital Signs Vital signs: Temp Pulse Resp BP Pulse Ox 98.8 F 87 16 140/98 H 100 06/27/18 10:53 06/27/18 10:53 06/27/18 10:53 06/27/18 10:53 06/27/18 10:53 Doctor's Discharge - Discharge Referrals: MASSIEL SMITH FNP [Primary Care Provider] - Follow up as needed
[2018-06-27 12:24] LABS: ABSOLUTE LYMPHOCYTES (AUTO) 1.5 10^3/uL (0.5-4.7); ABSOLUTE MONOCYTES (AUTO) 0.6 10^3/uL (0.1-1.4); BASOPHILS % (AUTO) 0.3 % (0-2); EOSINOPHILS % (AUTO) 0.2 % (0-6); HEMATOCRIT 45.1 % (36.0-47.0); HEMOGLOBIN 16.2 g/dL (12.0-15.5); LYMPHOCYTES % (AUTO) 23.7 % (13-45); MEAN CORPUSCULAR HEMOGLOBIN 34.9 pg (27.0-33.4); MEAN CORPUSCULAR VOLUME 97 fl (80-97); MONOCYTES % (AUTO) 10.3 % (3-13); PLATELET COUNT 243 10^3/uL (150-450); RED BLOOD COUNT 4.65 10^6/uL (3.72-5.28); RED CELL DISTRIBUTION WIDTH 12.9 % (11.5-14.0); SEGMENTED NEUTROPHILS % (AUTO) 65.5 % (42-78); TOTAL CELLS COUNTED % (AUTO) 100 %; WHITE BLOOD COUNT 6.2 10^3/uL (4.0-10.5)
[2018-06-27 12:41] LABS: ALANINE AMINOTRANSFERASE 15 U/L (9-52); ALBUMIN 5.3 g/dL (3.5-5.0); ALKALINE PHOSPHATASE 91 U/L (38-126); ANION GAP 16 (5-19); ASPARTATE AMINO TRANSFERASE 38 U/L (14-36); BILIRUBIN,DIRECT 0.5 mg/dL (0.0-0.4); BILIRUBIN,TOTAL 1.1 mg/dL (0.2-1.3); BLOOD UREA NITROGEN 37 mg/dL (7-20); CALCIUM 10.6 mg/dL (8.4-10.2); CARBON DIOXIDE 31 mmol/L (22-30); CHLORIDE 88 mmol/L (98-107); GLUCOSE 133 mg/dL (75-110); SODIUM 135.1 mmol/L (137-145); TOTAL PROTEIN 8.9 g/dL (6.3-8.2)
[2018-06-27 12:56] LABS: POTASSIUM 2.6 mmol/L (3.6-5.0)
[2018-06-27] MEDS ORDERED: POTASSIUM CHLORIDE 20 MEQ/15 ML UDCUP PO ONE (13:06)
[2018-06-27] MEDS ORDERED: POTASSIUM CHLORIDE 10 MEQ CAPSULE.ER PO ONE (13:06)
[2018-06-27] MEDS ORDERED: PROMETHAZINE HCL INJ 25 MG/1 ML VIAL IV ONE ×2 (13:07→13:08)
[2018-06-27] MEDS ORDERED: NORMAL SALINE 1000 ML 1,000 ML IV PRN (13:07)
--- NOTE | 2018-06-27 13:38 | RADIOLOGY REPORT (SQ) ---
EXAM DESCRIPTION: U/S ABDOMEN LIMITED W/O DOP COMPLETED DATE/TIME: 06/27/2018 1:14 pm REASON FOR STUDY: epigastric pain, radiation to right scapula COMPARISON: 02/22/2018 TECHNIQUE: Dynamic and static grayscale images acquired of the abdomen and recorded on PACS. Navin tavarez selected color Doppler and spectral images recorded. LIMITATIONS: None. FINDINGS: PANCREAS: No masses. Visualized pancreatic duct normal caliber. LIVER: No masses. Echotexture normal. LIVER VASCULATURE: Normal directional flow of the main portal vein and hepatic veins. GALLBLADDER: No stones. Normal wall thickness. No pericholecystic fluid. ULTRASOUND-DETECTED THOMPSON'S SIGN: Negative. INTRAHEPATIC DUCTS AND COMMON DUCT: CBD and intrahepatic ducts normal caliber. No filling defects. INFERIOR VENA CAVA: Normal flow. AORTA: No aneurysm. RIGHT KIDNEY: Normal size. Normal echogenicity. No solid or suspicious masses. No hydronephrosis. No calcifications. PERITONEAL AND RIGHT PLEURAL SPACE: No ascites or effusions. OTHER: No other significant findings. IMPRESSION: NORMAL RIGHT UPPER QUADRANT ULTRASOUND. TECHNICAL DOCUMENTATION: JOB ID: [id number] [employer]- All Rights Reserved Reading location - IP/workstation name: [email or web address]
--- NOTE | 2018-06-27 13:50 | RADIOLOGY REPORT (SQ) ---
EXAM DESCRIPTION: CHEST SINGLE VIEW COMPLETED DATE/TIME: 06/27/2018 1:38 pm REASON FOR STUDY: chest pain COMPARISON: 2016. NUMBER OF VIEWS: One view. TECHNIQUE: Single frontal radiographic view of the chest acquired. LIMITATIONS: None. FINDINGS: LUNGS AND PLEURA: No opacities, masses or pneumothorax. No pleural effusion. MEDIASTINUM AND HILAR STRUCTURES: No masses. Contour normal. HEART AND VASCULAR STRUCTURES: Heart normal in size. Normal vasculature. BONES: No acute findings. HARDWARE: None in the chest. OTHER: No other significant finding. IMPRESSION: NO SIGNIFICANT RADIOGRAPHIC FINDING IN THE CHEST. TECHNICAL DOCUMENTATION: JOB ID: [id number] [employer]- All Rights Reserved Reading location - IP/workstation name: [email or web address]
--- NOTE | 2018-06-27 14:22 | ER Document Report ---
ED General - General Chief Complaint: Chest Pain Stated Complaint: CHEST PAIN Time Seen by Provider: 06/27/18 11:21 Primary Care Provider: MASSIEL SMITH FNP [Primary Care Provider] - Follow up as needed TRAVEL OUTSIDE OF THE [place] IN LAST 30 DAYS: No - Priya November 2017 - [facility] Notes: Patient is a 42-year-old female that presents to the emergency department for chief complaint of epigastric pain, chest pain and vomiting. Patient reports 6 days ago she started having nausea and vomiting. She states she had some mild epigastric pain at that time. The nausea and vomiting i mproved over the course of 2 days and then became worse last night. Patient does endorse daily alcohol consumption of 3 shots nightly. Her last alcohol was last night which she believes aggravated her symptoms again. She reports she started having vomiting today. She states she began having a tightness across her chest and back that radiates into her right shoulder today as well. She denies history of gallbladder disease or pancreatitis. She denies history of gastric ulcers. She has not taken any jbax-vok-tejcupd medication prior to coming in. She does endorse some positional lightheadedness but denies any syncopal events. Past Medical History: Hypertension Past Surgical History: Negative Social History: Daily tobacco. Daily alcohol. Denies drug use. Family History: Reviewed and noncontributory for presenting illness Allergies: Reviewed, see documented allergy list. REVIEW OF SYSTEMS: CONSTITUTIONAL : No fever No chills No diaphoresis No recent illness EENT: No vision changes No congestion No sore throat CARDIOVASCULAR: chest pain No palpitations RESPIRATORY: No shortness of breath No cough No difficulty breathing GASTROINTESTINAL: abdominal pain nausea vomiting No diarrhea GENITOURINARY: No dysuria No hematuria No difficulty urinating MUSCULOSKELETAL: back pain No leg pain No arm pain SKIN: No rashes No lesions LYMPHATIC: No swollen, enlarged glands. NEUROLOGICAL: lightheadedness No headache No weakness No paresthesias PSYCHIATRIC: No anxiety No depression PHYSICAL EXAMINATION: Vital signs reviewed, nursing noted reviewed. GENERAL: Well-appearing, well-nourished and in no acute distress. HEAD: Atraumatic, normocephalic. EYES: Eyes appear normal, extraocular movements intact, sclera anicteric, co njunctiva are normal. ENT: nares patent, oropharynx clear without exudates. Moist mucous membranes. NECK: Normal range of motion, supple without lymphadenopathy LUNGS: Breath sounds clear to auscultation bilaterally and equal. No wheezes rales or rhonchi. HEART: Regular rate and rhythm without murmurs ABDOMEN: Soft, mild epigastric tenderness, normoactive bowel sounds. No rebound, guarding, or rigidity. No masses appreciated. EXTREMITIES: Nontender, good range of motion, no pitting or edema. NEUROLOGICAL: No focal neurological deficits. Moves all extremities spontaneously Motor and sensory grossly intact on exam. PSYCH: Normal mood, normal affect. SKIN: Warm, Dry, normal turgor, no rashes or lesions noted on exposed skin - Related Data Allergies/Adverse Reactions: Sulfa (Sulfonamide Antibiotics) Allergy (Verified 06/27/18 10:39) Past Medical History - Social History Smoking Status: Former Smoker Chew tobacco use (# tins/day): No Frequency of alcohol use: Heavy Drug Abuse: None Family History: Reviewed & Not Pertinent Patient has suicidal ideation: No Patient has homicidal ideation: No - Past Medical History Cardiac Medical History: Reports: Hx Hypertension Renal/ Medical History: Denies: Hx Peritoneal Dialysis Past Surgical History: Reports: Hx Breast Surgery - LIFT, Hx Dilation and Curettage, Hx Gynecologic Surgery - uterine polyp, Hx Myringotomy - Immunizations Hx Diphtheria, Pertussis, Tetanus Vaccination: Yes Physical Exam - Vital signs Vitals: Temp Pulse Resp BP Pulse Ox 98.8 F 87 16 140/98 H 100 06/27/18 10:53 06/27/18 10:53 06/27/18 10:53 06/27/18 10:53 06/27/18 10:53 Course - Re-evaluation Re-evalutation: 06/27/18 14:47 Vitals reviewed. Nursing notes reviewed. Patient did have some symptomatic improvement after medication in the ER. She has a benign abdominal exam. Ultrasound of the right upper quadrant is unremarkable. Patient does appear dehydrated on lab work with acute kidney injury and hypokalemia. She was given IV hydration and potassium replacement in the ED. Patient's cardiac workup is unremarkable and her chest pain is likely not ACS. She will be admitted to the hospital for further hydration and monitoring of her renal failure. Case discussed with Dr. Dahl who accepted admission. Patient in agreement with this plan of care. Laboratory 06/27/18 06/27/18 06/27/18 11:27 11:57 11:57 WBC 6.2 RBC 4.65 Hgb 16.2 H Hct 45.1 MCV 97 MCH 34.9 H MCHC 36.0 RDW 12.9 Plt Count 243 Seg Neutrophils % 65.5 Lymphocytes % 23.7 Monocytes % 10.3 Eosinophils % 0.2 Basophils % 0.3 Absolute Neutrophils 4.0 Absolute Lymphocytes 1.5 Absolute Monocytes 0.6 Absolute Eosinophils 0.0 Absolute Basophils 0.0 Sodium 135.1 L Potassium 2.6 L* Chloride 88 L Carbon Dioxide 31 H Anion Gap 16 BUN 37 H Creatinine 2.37 H Est GFR ( Amer) 27 L Est GFR (Non-Af Amer) 22 L Glucose 133 H Calcium 10.6 H Total Bilirubin 1.1 Direct Bilirubin 0.5 H Neonat Total Bilirubin Not Reportable Neonat Direct Bilirubin Not Reportable Neonat Indirect Bili Not Reportable AST 38 H ALT 15 Alkaline Phosphatase 91 Troponin I Total Protein 8.9 H Albumin 5.3 H Lipase 209.8 Serum Alcohol < 10 06/27/18 11:57 WBC RBC Hgb Hct MCV MCH MCHC RDW Plt Count Seg Neutrophils % Lymphocytes % Monocytes % Eosinophils % Basophils % Absolute Neutrophils Absolute Lymphocytes Absolute Monocytes Absolute Eosinophils Absolute Basophils Sodium Potassium Chloride Carbon Dioxide Anion Gap BUN Creatinine Est GFR ( Amer) Est GFR (Non-Af Amer) Glucose Calcium Total Bilirubin Direct Bilirubin Neonat Total Bilirubin Neonat Direct Bilirubin Neonat Indirect Bili AST ALT Alkaline Phosphatase Troponin I < 0.012 Total Protein Albumin Lipase Serum Alcohol Chest X-Ray 06/27/18 11:28 IMPRESSION: NO SIGNIFICANT RADIOGRAPHIC FINDING IN THE CHEST. Abdomen Ultrasound 06/27/18 11:29 IMPRESSION: NORMAL RIGHT UPPER QUADRANT ULTRASOUND. - Vital Signs Vital signs: Temp Pulse Resp BP Pulse Ox 98.8 F 87 16 140/98 H 100 06/27/18 10:53 06/27/18 10:53 06/27/18 10:53 06/27/18 10:53 06/27/18 10:53 - Laboratory Result Diagrams: 06/27/18 11:57 06/27/18 11:57 Laboratory results interpreted by me: 06/27/18 06/27/18 11:57 11:57 Hgb 16.2 H MCH 34.9 H Sodium 135.1 L Potassium 2.6 L* Chloride 88 L Carbon Dioxide 31 H BUN 37 H Creatinine 2.37 H Est GFR ( Amer) 27 L Est GFR (Non-Af Amer) 22 L Glucose 133 H Calcium 10.6 H Direct Bilirubin 0.5 H AST 38 H Total Protein 8.9 H Albumin 5.3 H Discharge - Discharge Clinical Impression: Acute kidney injury, Dehydration, Hypokalemia Chest pain Qualifiers: Chest pain type: unspecified Qualified Code(s): R07.9 - Chest pain, unspecified Abdominal pain Qualifiers: Abdominal location: epigastric Qualified Code(s): R10.13 - Epigastric pain Condition: Stable Disposition: ADMITTED OBSERVATION Admitting Provider: Hospitalist Unit Admitted: Telemetry
[2018-06-27 14:34] LABS: LIPASE 209.8 U/L (23-300)
[2018-06-27 14:35] LABS: ALCOHOL < 10 mg/dL (NONE DETECTED)
[2018-06-27] MEDS ORDERED: ONDANSETRON HCL INJ/PF 4 MG/2 ML SDV IV PRN (16:37)
[2018-06-27] MEDS ORDERED: ACETAMINOPHEN 325 MG TABLET PO PRN (16:37)
[2018-06-27] MEDS ORDERED: PROMETHAZINE HCL INJ 25 MG/1 ML VIAL IV PRN (16:37)
[2018-06-27] MEDS ORDERED: ACETAMINOPHEN 650 MG SUPP.RECT PR PRN (16:37)
[2018-06-27] MEDS ORDERED: SIMETHICONE 80 MG TAB.CHEW PO PRN (16:54)
[2018-06-27] MEDS ORDERED: LORAZEPAM INJ 2 MG/1 ML VIAL IV PRN (16:56)
[2018-06-27] MEDS: LANSOPRAZOLE 30 MG TAB.RAP.DR PO SCH (17:56)
[2018-06-27] MEDS: LOSARTAN POTASSIUM 50 MG TABLET PO SCH (17:56)
[2018-06-27] MEDS: PROPRANOLOL HCL 20 MG TABLET PO SCH (17:56)
--- NOTE | 2018-06-27 20:26 | PDOC H&P ---
History of Present Illness Admission Date/PCP: 06/27/18 14:59 BLANKA MILES Patient complains of: Intractable vomiting for 4-5 days History of Present Illness: SILAS NARAYAN is a 42 year old female who began feeling sick last or Monday. She was having nausea and vomiting. She denied chills or fever. She was tolerating liquids until yesterday when her vomiting became worse. This included increased crampy abdominal pain. She did have a large bowel movement but this did not significantly change the pain. Patient has been having stomach problems but has not seen a shipyard painter yet. Examination in the emergency department revealed acute kidney injury with severe hypokalemia. She was referred to the hospitalist team for admission. 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 Past Medical History Cardiac Medical History: Reports: Hypertension Pulmonary Medical History: Reports: None EENT Medical History: Reports: None Neurological Medical History: Reports: None Endocrine Medical History: Reports: None Renal/ Medical History: Reports: None Malignancy Medical History: Reports: None GI Medical History: Reports: Gastroesophageal Reflux Disease, Other - History of a similar episode within the last year. Musculoskeltal Medical History: Reports: None Skin Medical History: Reports: None Psychiatric Medical History: Reports: None Traumatic Medical History: Reports: None Hematology: Reports: None Infectious Medical History: Reports: None Past Surgical History Past Surgical History: Reports: Other - Breast augmentation, cervical polyp removal Social History Lives with: Family - Patient is . No children. 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 The patient states that her will make decisions. Family History Family History: CAD Parental Family History Reviewed: Yes Children Family History Reviewed: NA Sibling(s) Family History Reviewed.: Yes Medication/Allergy Home Medications: Losartan/Hydrochlorothiazide [Losartan-Hctz 100-25 mg Tab] 1 tab PO DAILY 06/27/18 Omeprazole 20 mg PO BID 06/27/18 Propranolol HCl [Propranolol HCl ER] 60 mg PO QHS 06/27/18 Allergies/Adverse Reactions: Sulfa (Sulfonamide Antibiotics) Allergy (Verified 06/27/18 15:09) Review of Systems Constitutional: PRESENT: as per HPI Eyes: ABSENT: visual disturbances Ears: ABSENT: hearing changes Nose, Mouth, and Throat: PRESENT: sore throat - From vomiting. ABSENT: mouth pain Cardiovascular: ABSENT: chest pain, dyspnea on exertion, edema, palpitations Respiratory: PRESENT: cough, sputum. ABSENT: hemoptysis Gastrointestinal: PRESENT: abdominal pain, heartburn, nausea, vomiting, other - Eructation Genitourinary: ABSENT: difficulty urinating, dysuria Musculoskeletal: ABSENT: back pain, joint swelling Integumentary: ABSENT: pruritus, rash, wounds Neurological: PRESENT: other - Light headed. ABSENT: abnormal speech, confu sarthak, tremor(s) Psychiatric: ABSENT: anxiety, depression, hallucinations Endocrine: ABSENT: cold intolerance, heat intolerance, polydipsia Hematologic/Lymphatic: ABSENT: easy bleeding, easy bruising Physical Exam Vital Signs: Temp Pulse Resp BP Pulse Ox 98.3 F 87 18 110/70 100 06/27/18 19:55 06/27/18 10:53 06/27/18 19:01 06/27/18 19:00 06/27/18 17:00 Intake & Output 06/26/18 06/27/18 06/28/18 06:59 06:59 06:59 Intake Total 1000 Balance 1000 Weight 74.8 kg General appearance: PRESENT: cooperative, mild distress Head exam: PRESENT: atraumatic, normocephalic Eye exam: PRESENT: conjunctiva pink, EOMI. ABSENT: scleral icterus Ear exam: PRESENT: normal external ear exam Mouth exam: PRESENT: moist Neck exam: ABSENT: carotid bruit, lymphadenopathy Respiratory exam: PRESENT: clear to auscultation radha, symmetrical, unlabored. ABSENT: accessory muscle use, rales, rhonchi, wheezes Cardiovascular exam: PRESENT: RRR, +S1, +S2 GI/Abdominal exam: PRESENT: normal bowel sounds, soft, tenderness - Localized in the epigastrium. No radiation. Characterized as a gnawing pain.. ABSENT: d istended, guarding Rectal exam: PRESENT: deferred Gentrourinary exam: ABSENT: indwelling catheter Extremities exam: ABSENT: pedal edema Musculoskeletal exam: PRESENT: normal inspection Neurological exam: PRESENT: alert, awake, oriented to person, oriented to place, oriented to time, oriented to situation, CN II-XII grossly intact Psychiatric exam: PRESENT: appropriate affect, other - Affect reflects her current condition.. ABSENT: agitated, anxious Focused psych exam: ABSENT: restlessness Skin exam: PRESENT: dry, warm. ABSENT: abrasion, erythema Results Laboratory Results: 06/27/18 11:57 06/27/18 11:57 06/27/18 06/27/18 06/27/18 11:27 11:57 11:57 WBC 6.2 RBC 4.65 Hgb 16.2 H Hct 45.1 MCV 97 MCH 34.9 H MCHC 36.0 RDW 12.9 Plt Count 243 Seg Neutrophils % 65.5 Lymphocytes % 23.7 Monocytes % 10.3 Eosinophils % 0.2 Basophils % 0.3 Absolute Neutrophils 4.0 Absolute Lymphocytes 1.5 Absolute Monocytes 0.6 Absolute Eosinophils 0.0 Absolute Basophils 0.0 Sodium 135.1 L Potassium 2.6 L* Chloride 88 L Carbon Dioxide 31 H Anion Gap 16 BUN 37 H Creatinine 2.37 H Est GFR ( Amer) 27 L Est GFR (Non-Af Amer) 22 L Glucose 133 H Calcium 10.6 H Total Bilirubin 1.1 AST 38 H ALT 15 Alkaline Phosphatase 91 Total Protein 8.9 H Albumin 5.3 H Lipase 209.8 06/27/18 11:57 Troponin I < 0.012 Impressions: Chest X-Ray 06/27/18 11:28 IMPRESSION: NO SIGNIFICANT RADIOGRAPHIC FINDING IN THE CHEST. Abdomen Ultrasound 06/27/18 11:29 IMPRESSION: NORMAL RIGHT UPPER QUADRANT ULTRASOUND. Assessment & Plan - Diagnosis (1) Nausea and vomiting Qualifiers: Vomiting type: unspecified Vomiting Intractability: intractable Qualified Code(s): R11.2 - Nausea with vomiting, unspecified Is this a current diagnosis for this admission?: Yes Plan: The exact etiology for the nausea and vomiting is unclear at this time. Potentially gastritis related to alcohol. It is unlikely pancreatitis since her lipase is normal. Transaminases are not markedly increased hip. I have ordered a fecal occult blood test. She will be on proton pump inhibitors as well as simethicone for increased burping. Aggressive use of anti-emetics as well. (2) Acute kidney injury Is this a current diagnosis for this admission?: Yes Plan: Because of the significant dehydration from limited oral intake the patient's renal function is significantly decreased. We will start with very aggressive hydration and recheck her renal function. With no history of kidney disease I expect her renal function to improve drastically. (3) Dehydration Is this a current diagnosis for this admission?: Yes Plan: As above (4) Abdominal pain Qualifiers: Abdominal location: epigastric Qualified Code(s): R10.13 - Epigastric pain Is this a current diagnosis for this admission?: Yes Plan: As noted above she may have a gastritis. At some point she should have a upper endoscopy. For the time being we will try and control her symptoms. (5) Hypokalemia Is this a current diagnosis for this admission?: Yes Plan: Significant hypokalemia with the nausea and vomiting. In addition to aggressive rehydration I will monitor her serum potassium levels and supplement as appropriate. (6) Hypercalcemia Is this a current diagnosis for this admission?: Yes Plan: Likely due from dehydration. Her albumin levels are up from volume depletion as well. (7) Hyponatremia Is this a current diagnosis for this admission?: Yes Plan: Continue to monitor electrolytes during aggressive rehydration. (8) Hypertension Qualifiers: Hypertension type: essential hypertension Qualified Code(s): I10 - Es sential (primary) hypertension Is this a current diagnosis for this admission?: Yes Plan: History of hypertension. I will resume her losartan and propranolol. I have split her normal dose to twice daily. If she remains normotensive with the aggressive hydration then I will resume her normal home dosing. She was on long-acting atenolol and with the split dose I feel this will be more effective. (9) Gastritis Qualifiers: Chronicity: unspecified Gastritis bleeding: without bleeding Is this a current diagnosis for this admission?: Yes Plan: As noted above she does take 3 drinks daily. This certainly could be an alcohol related gastritis. For now there will be no use of alcohol. Proton pump inhibitor therapy has noted above. If this is ineffective consider Carafate. - Time Time Spent: 50 to 70 Minutes Smoking Cessation Education: 3 to 10 minutes Medications reviewed and adjusted accordingly: Yes Anticipated discharge: Home Within: within 48 hours - Plan Summary Plan Summary: Sedation. I expect with aggressive rehydration we may be able to turn this around within 24 hours. We will monitor her chemistries as noted above. Upon discharge I will refer her to gastroenterology for additional workup. We will continue to encourage abstinence from alcohol and tobacco cessation.
[2018-06-27] MEDS: NORMAL SALINE 1000 ML 1,000 ML IV PRN (20:50)
[2018-06-27] MEDS: HEPARIN SOD (PORCINE) 5,000 UNIT/ML 1 ML SYRINGE SUBCUT SCH (22:15)
[2018-06-27 22:35] LABS: ANION GAP 10 (5-19); BLOOD UREA NITROGEN 26 mg/dL (7-20); CARBON DIOXIDE 26 mmol/L (22-30); CHLORIDE 100 mmol/L (98-107); GLUCOSE 180 mg/dL (75-110); SODIUM 135.9 mmol/L (137-145)
--- NOTE | 2018-06-27 22:51 | EKG REPORT ---
SEVERITY:- ABNORMAL ECG - SINUS RHYTHM PROBABLE INFEROLATERAL INFARCT, AGE INDETERM : Confirmed by: Anahi Cobb 27-Jun-2018 22:51:38
[2018-06-27 22:55] LABS: POTASSIUM 3.8 mmol/L (3.6-5.0)
[2018-06-28 05:05] LABS: ABSOLUTE LYMPHOCYTES (AUTO) 2.1 10^3/uL (0.5-4.7); ABSOLUTE MONOCYTES (AUTO) 0.8 10^3/uL (0.1-1.4); ABSOLUTE NEUT (AUTO) 3.4 10^3/uL (1.7-8.2); BASOPHILS % (AUTO) 0.3 % (0-2); EOSINOPHILS % (AUTO) 0.1 % (0-6); HEMATOCRIT 32.6 % (36.0-47.0); LYMPHOCYTES % (AUTO) 33.2 % (13-45); MEAN CORPUSCULAR HGB CONC 35.8 g/dL (32.0-36.0); MEAN CORPUSCULAR VOLUME 98 fl (80-97); MONOCYTES % (AUTO) 12.1 % (3-13); PLATELET COUNT 148 10^3/uL (150-450); RED BLOOD COUNT 3.32 10^6/uL (3.72-5.28); RED CELL DISTRIBUTION WIDTH 12.8 % (11.5-14.0); SEGMENTED NEUTROPHILS % (AUTO) 54.3 % (42-78); TOTAL CELLS COUNTED % (AUTO) 100 %; WHITE BLOOD COUNT 6.3 10^3/uL (4.0-10.5)
[2018-06-28 05:11] LABS: ANION GAP 9 (5-19); BLOOD UREA NITROGEN 22 mg/dL (7-20); CALCIUM 8.6 mg/dL (8.4-10.2); CARBON DIOXIDE 26 mmol/L (22-30); CHLORIDE 103 mmol/L (98-107); GLUCOSE 95 mg/dL (75-110)
[2018-06-28 05:14] LABS: HEMOGLOBIN 11.6 g/dL (12.0-15.5)
[2018-06-28] MEDS: LANSOPRAZOLE 30 MG TAB.RAP.DR PO SCH ×2 (06:17→19:30)
[2018-06-28] MEDS: NORMAL SALINE 1000 ML 1,000 ML IV PRN (06:18)
[2018-06-28] MEDS: HEPARIN SOD (PORCINE) 5,000 UNIT/ML 1 ML SYRINGE SUBCUT SCH (06:19)
[2018-06-28] MEDS: POTASSIUM CHLORIDE 10 MEQ CAPSULE.ER PO SCH ×2 (11:57→19:29)
[2018-06-28] MEDS: LOSARTAN POTASSIUM 50 MG TABLET PO SCH ×2 (15:06→22:10)
[2018-06-28] MEDS: PROPRANOLOL HCL 20 MG TABLET PO SCH ×2 (15:13→22:10)
[2018-06-28] MEDS ORDERED: POTASSI CL 20 MEQ/NS 1L 1,000 ML IV PRN (16:42)
[2018-06-28] MEDS: POTASSI CL 20 MEQ/NS 1L 1,000 ML IV PRN (19:29)
--- NOTE | 2018-06-28 22:22 | PDOC PROGRESS REPORT ---
Subjective Progress Note for:: 06/28/18 Subjective:: The patient feels remarkably better today Reason For Visit: HYPOKALEMIA, acute kidney injury, volume depletion Physical Exam Vital Signs: Temp Pulse Resp BP Pulse Ox 98.1 F 75 16 97/63 L 100 06/28/18 20:13 06/28/18 20:13 06/28/18 20:13 06/28/18 20:13 06/28/18 20:13 Intake & Output 06/27/18 06/28/18 06/29/18 06:59 06:59 06:59 Intake Total 1999 175 Balance 1999 175 Weight 75.8 kg General appearance: PRESENT: no acute distress, cooperative Respiratory exam: PRESENT: clear to auscultation radha. ABSENT: rales, rhonchi, wheezes Cardiovascular exam: PRESENT: RRR, +S1, +S2 GI/Abdominal exam: PRESENT: normal bowel sounds, soft. ABSENT: tenderness Neurological exam: PRESENT: alert, awake, oriented to person, oriented to place, oriented to time, oriented to situation Psychiatric exam: PRESENT: normal mood. ABSENT: agitated, anxious Results Laboratory Results: 06/28/18 04:17 06/28/18 04:17 06/27/18 06/28/18 06/28/18 22:07 04:17 04:17 WBC 6.3 RBC 3.32 L Hgb 11.6 L D Hct 32.6 L MCV 98 H MCH 35.0 H MCHC 35.8 RDW 12.8 Plt Count 148 L Seg Neutrophils % 54.3 Lymphocytes % 33.2 Monocytes % 12.1 Eosinophils % 0.1 Basophils % 0.3 Absolute Neutrophils 3.4 Absolute Lymphocytes 2.1 Absolute Monocytes 0.8 Absolute Eosinophils 0.0 Absolute Basophils 0.0 Sodium 135.9 L 138.0 Potassium 3.8 D 3.0 L* Chloride 100 103 Carbon Dioxide 26 26 Anion Gap 10 9 BUN 26 H 22 H Creatinine 1.69 H 1.47 H Est GFR ( Amer) 40 L 47 L Est GFR (Non-Af Amer) 33 L 39 L Glucose 180 H 95 Calcium 9.0 8.6 Magnesium 2.2 2.0 06/27/18 11:57 Troponin I < 0.012 Impressions: Chest X-Ray 06/27/18 11:28 IMPRESSION: NO SIGNIFICANT RADIOGRAPHIC FINDING IN THE CHEST. Abdomen Ultrasound 06/27/18 11:29 IMPRESSION: NORMAL RIGHT UPPER QUADRANT ULTRASOUND. Assessment & Plan - Diagnosis (1) Nausea and vomiting Qualifiers: Vomiting type: unspecified Vomiting Intractability: intractable Qualified Code(s): R11.2 - Nausea with vomiting, unspecified Is this a current diagnosis for this admission?: Yes Plan: Resolved (2) Acute kidney injury Is this a current diagnosis for this admission?: Yes Plan: Despite very aggressive fluids there has only been a modest improvement in renal function. We will continue IV fluids. (3) Dehydration Is this a current diagnosis for this admission?: Yes (4) Abdominal pain Qualifiers: Abdominal location: epigastric Qualified Code(s): R10.13 - Epigastric pain Is this a current diagnosis for this admission?: Yes (5) Hypokalemia Is this a current diagnosis for this admission?: Yes Plan: This has been a significant issue. I was hoping that with diet and supplementation it would normalize but her serum potassium level is very labile. I will may use potassium in her IV fluids as well as the oral potassium dosing. (6) Hypercalcemia Is this a current diagnosis for this admission?: Yes (7) Hyponatremia Is this a current diagnosis for this admission?: Yes (8) Hypertension Qualifiers: Hypertension type: essential hypertension Qualified Code(s): I10 - Essential (primary) hypertension Is this a current diagnosis for this admission?: Yes (9) Gastritis Qualifiers: Chronicity: unspecified Gastritis bleeding: without bleeding Is this a current diagnosis for this admission?: Yes Plan: Much better on the proton pump inhibitor. I will discuss alcohol cessation as well. - Time Time Spent with patient: 15-24 minutes Medications reviewed and adjusted accordingly: Yes Anticipated discharge: Home Within: within 48 hours - Plan Summary Plan Summary: Her was present during the encounter. It was very interesting when the patient came to the realization that she needs to take better care of herself realizing how quickly her health can deteriorate.
[2018-06-29] MEDS: POTASSI CL 20 MEQ/NS 1L 1,000 ML IV PRN (02:21)
[2018-06-29 05:44] LABS: HEMATOCRIT 31.2 % (36.0-47.0); MEAN CORPUSCULAR HEMOGLOBIN 35.3 pg (27.0-33.4); MEAN CORPUSCULAR HGB CONC 35.1 g/dL (32.0-36.0); MEAN CORPUSCULAR VOLUME 100 fl (80-97); PLATELET COUNT 122 10^3/uL (150-450); RED BLOOD COUNT 3.11 10^6/uL (3.72-5.28); RED CELL DISTRIBUTION WIDTH 12.8 % (11.5-14.0); WHITE BLOOD COUNT 5.6 10^3/uL (4.0-10.5)
[2018-06-29 06:03] LABS: ANION GAP 8 (5-19); BLOOD UREA NITROGEN 14 mg/dL (7-20); CALCIUM 8.3 mg/dL (8.4-10.2); CARBON DIOXIDE 24 mmol/L (22-30); CHLORIDE 107 mmol/L (98-107); GLUCOSE 93 mg/dL (75-110); POTASSIUM 3.9 mmol/L (3.6-5.0); SODIUM 138.5 mmol/L (137-145)
[2018-06-29] MEDS: LANSOPRAZOLE 30 MG TAB.RAP.DR PO SCH (06:28)
[2018-06-29] MEDS: PROPRANOLOL HCL 20 MG TABLET PO SCH (09:52)
[2018-06-29] MEDS: LOSARTAN POTASSIUM 50 MG TABLET PO SCH (09:52)
[2018-06-29] MEDS: POTASSIUM CHLORIDE 10 MEQ CAPSULE.ER PO SCH (09:57)
--- NOTE | 2018-06-29 11:17 | PDOC DISCHARGE SUMMARY ---
General - Admit/Disc Date/PCP Admission Date/Primary Care Provider: 06/27/18 23:10 MASSIEL SMITH, PERSONAL COUNSELOR Discharge Date: 06/29/18 - Discharge Diagnosis (1) Nausea and vomiting Is this a current diagnosis for this admission?: Yes Summary: The patient had profuse nausea and vomiting for several days prior to the admission. With antiemetics, rehydration and proton pump inhibitors she felt much better. The etiology was most likely a viral illness. A gastritis certainly could have contributed. I did suggest that she remained well-hydrated after discharge. (2) Acute kidney injury Is this a current diagnosis for this admission?: Yes Summary: Most likely from volume contraction. Her serum creatinine is now down to 1.27 with a BUN of 14. Continue to stay well-hydrated. I would follow-up with her primary care provider and have repeat blood work next week. (3) Dehydration Is this a current diagnosis for this admission?: Yes Summary: Resolved (4) Abdominal pain Is this a current diagnosis for this admission?: Yes Summary: Resolved (5) Hypokalemia Is this a current diagnosis for this admission?: Yes Summary: Resolved. The patient will be discharged on potassium supplementation. I will defer adjustments in medications and monitoring serum potassium level to her primary care provider. It did take extensive doses of potassium chloride by IV as well as oral doses to achieve normokalemia. (6) Hypercalcemia Is this a current diagnosis for this admission?: Yes Summary: Secondary to combination of volume contraction and the resultant hyperalbuminemia. Consider repeat calcium with follow-up labs. (7) Hyponatremia Is this a current diagnosis for this admission?: Yes Summary: Resolved (8) Hypertension Is this a current diagnosis for this admission?: Yes Summary: Interestingly, the patient's blood pressure remains low. Even after splitting doses of her medications there still held on occasion for low blood pressure or low pulse. Her pulse rate varies. For the time being I would like to keep her on the split dose of propranolol 20 mg twice daily and have her check her pulse rate every day. I also have suggested losartan 2 mg twice daily with parameters for holding her medication if the blood pressure is too low as well. It is likely that over time her blood pressure may improve. I also believe that an improved diet as well as exercise will definitely decrease the amount of antihypertensive required. (9) Gastritis Is this a current diagnosis for this admission?: Yes Summary: The patient was placed on proton pump inhibitors. I also discussed with her the probability that stress and daily alcohol consumption are contributing. We did review the aspect of stress in her life. Her primary care provider did give her a prescription for Lexapro 10 mg daily but she neglected to start the medicatio n. She was fearful of potential comp locations. We reviewed the antidepressant medications as a whole and I encouraged her strongly to initiate the medication. I also stressed that exercise is very good at reducing stress. - Additional Information Resuscitation Status: Full Code Home Medications: Losartan/Hydrochlorothiazide [Losartan-Hctz 100-25 mg Tab] 1 tab PO DAILY 06/27/18 Omeprazole 20 mg PO BID 06/27/18 Propranolol HCl [Propranolol HCl ER] 60 mg PO QHS 06/27/18 History of Present Illness Patient complains of: Nausea, vomiting and feeling quite poorly History of Present Illness: SILAS NARAYAN is a 42 year old female who began feeling sick last or Monday. She was having nausea and vomiting. She denied chills or fever. She was tolerating liquids until yesterday when her vomiting became worse. This included increased crampy abdominal pain. She did have a large bowel movement but this did not significantly change the pain. Patient has been having stomach problems but has not seen a weapons officer yet. Examination in the emergency department revealed acute kidney injury with severe hypokalemia. She was referred to the hospitalist team for admission. 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 Hospital Course Hospital Course: The patient had an unremarkable hospital course. She did require aggressive fluid resuscitation as well as aggressive potassium replenishment. She appears to be on a reasonable regimen at this time. I have asked her to follow-up with her primary care provider to obtain repeat laboratory studies next week. In addition she initially was hypertensive. Because of the acute kidney injury I did split the doses of her medications. At this time with slightly reduced medication she has good blood pressure control. I am going to discharge her w ith specific instructions regarding dose adjustments based on her blood pressure and pulse rate at home. Physical Exam Vital Signs: Temp Pulse Resp BP Pulse Ox 98.4 F 99 18 127/77 H 83 L 06/29/18 08:05 06/29/18 08:05 06/29/18 08:05 06/29/18 08:05 06/29/18 08:05 Intake & Output 06/28/18 06/29/18 06/30/18 06:59 06:59 06:59 Intake Total 1999 362 Output Total 266 Balance 1999 3359 Weight 75.8 kg 71.2 kg General appearance: PRESENT: no acute distress, cooperative Respiratory exam: PRESENT: clear to auscultation radha, symmetrical, unlabored. ABSENT: rales, rhonchi, wheezes Cardiovascular exam: PRESENT: RRR, +S1, +S2 GI/Abdominal exam: PRESENT: normal bowel sounds, soft. ABSENT: distended, tenderness Rectal exam: PRESENT: deferred Extremities exam: ABSENT: pedal edema Neurological exam: PRESENT: alert, awake, oriented to person, oriented to place, oriented to time, oriented to situation, CN II-XII grossly intact Psychiatric exam: PRESENT: anxious Results Laboratory Results: 06/29/18 04:23 06/29/18 04:23 06/29/18 06/29/18 04:23 04:23 WBC 5.6 RBC 3.11 L Hgb 11.0 L Hct 31.2 L MCV 100 H MCH 35.3 H MCHC 35.1 RDW 12.8 Plt Count 122 L Sodium 138.5 Potassium 3.9 Chloride 107 Carbon Dioxide 24 Anion Gap 8 BUN 14 Creatinine 1.27 H Est GFR ( Amer) 56 L Est GFR (Non-Af Amer) 46 L Glucose 93 Calcium 8.3 L 06/27/18 11:57 Troponin I < 0.012 Impressions: Chest X-Ray 06/27/18 11:28 IMPRESSION: NO SIGNIFICANT RADIOGRAPHIC FINDING IN THE CHEST. Abdomen Ultrasound 06/27/18 11:29 IMPRESSION: NORMAL RIGHT UPPER QUADRANT ULTRASOUND. Qualifiers - * PATIENT BEING DISCHARGED WITH ANY OF THE FOLLOWING DIAGNOSIS: No Plan Discharge Plan: Discharged home. Follow-up with primary care provider next week. Time Spent: Less than 30 Minutes
[2018-06-29 13:44] VITALS: BP 103/64
== END 2018-06-29 14:55 | disposition home or self-care (01) | DRG 641 ==
LOC: ER 10:31 → INTOOBSV 14:59 → EH 14:59 → OBSVTOIN 14:59 → 5 06-28 01:11
PROVIDERS: ADMIT Hospitalist; ATTEND Hospitalist
DX: E87.6 Hypokalemia (principal); N17.9 Acute kidney failure, unspecified; E83.52 Hypercalcemia; I10 Essential (primary) hypertension; K21.9 Gastro-esophageal reflux disease without esophagitis; E86.0 Dehydration; E87.1 Hypo-osmolality and hyponatremia; K29.70 Gastritis, unspecified, without bleeding; Z87.891 Personal history of nicotine dependence; Z88.2 Allergy status to sulfonamides
CPT/HCPCS: 36415; 71045; 76705; 80048; 80053; 80307; 83690; 83735; 84484; 85025; 85027; 93005; 93010; 96361; 96374; 96375; 99285; G0378; J2405; J2550; J3480; J3490; J7030; S0164

== ENCOUNTER 2019-03-12 01:09 | Emergency (ER) | payer OTHER ==
[2019-03-12] MEDS ORDERED: RINGERS SOLUTION,LACTATED 1,000 ML IV ONE (03:21)
[2019-03-12] MEDS ORDERED: DIPHENHYDRAMINE HCL 50 MG/ML VIAL IV ONE (03:21)
[2019-03-12] MEDS: PROCHLORPERAZINE EDISYLATE INJ 10 MG/2 ML VIAL IV ONE ×2 (03:56→04:19)
[2019-03-12] MEDS ORDERED: PROMETHAZINE HCL INJ 25 MG/1 ML VIAL IV ONE (04:04)
--- NOTE | 2019-03-12 05:07 | ER Document Report ---
ED General - General Chief Complaint: Nausea/Vomiting Stated Complaint: NAUSEA,VOMITING,FEVER Time Seen by Provider: 03/12/19 03:10 Primary Care Provider: MASSIEL SMITH FNP [Primary Care Provider] - Follow up as needed TRAVEL OUTSIDE OF THE [place] IN LAST 30 DAYS: No - HPI Notes: 43-year-old female presents with nausea and vomiting. Gradual onset of the last day and a half. has diarrhea but no vomiting. The same pizza. Some body aches and chills but no measured fever. No abdominal pain. No diarrhea. Moderate intensity. No other modifying factors no associated symptoms no other provocative or palliative factors - Related Data Allergies/Adverse Reactions: Sulfa (Sulfonamide Antibiotics) Allergy (Verified 06/27/18 15:09) Home Medications: losartan, hctz, omeprozole, propranolol. Past Medical History - Social History Smoking Status: Current Every Day Smoker Chew tobacco use (# tins/day): No Frequency of alcohol use: Social Drug Abuse: None Family History: CAD Patient has suicidal ideation: No Patient has homicidal ideation: No - Past Medical History Cardiac Medical History: Reports: Hx Hypertension Renal/ Medical History: Denies: Hx Peritoneal Dialysis GI Medical History: Reports: Hx Gastroesophageal Reflux Disease Past Surgical History: Reports: Hx Breast Surgery - LIFT, Hx Dilation and Curettage, Hx Gynecologic Surgery - uterine polyp, Hx Myringotomy, Other - Breast augmentation, cervical polyp removal - Immunizations Hx Diphtheria, Pertussis, Tetanus Vaccination: Yes Review of Systems - Review of Systems Notes: Review of systems as in the history of present illness, otherwise negative x 10 systems. Review of systems as in the history of present illness, otherwise negative x 10 systems. Physical Exam - Notes Notes: General: Well developed . Mildly mucosa HEENT: Normocephalic, atraumatic. Pupils equal round reactive to light. No JVD. Chest: No trauma. Respiratory: Good air exchange, normal excursion. Cardiac: Regular rhythm. No murmurs or gallops. Abdomen: Soft, benign. Nondistended. Nontender. Back: No asymmetry or gross abnormality. Motor: Grossly normal power and tone. Neurologic: Alert, nonfocal. Cranial nerves II-12 are intact. Sensation intact. Vascular: Well perfused. Normal peripheral pulses. Skin: No petechiae or purpura. Course - Re-evaluation Re-evalutation: 03/12/19 05:14 43-year-old female presents the after mentioned symptoms, clinical signs of mild dehydration. Benign abdomen, suspect viral illness or food poisoning. Will hydrate, treat with IV Phenergan, reevaluate. Patient had moderate improvement, discharged home with prescription for Phenergan suppositories at her request, outpatient follow-up, return if worsening. Discharge - Discharge Clinical Impression: Vomiting Qualifiers: Vomiting type: unspecified Vomiting Intractability: non-intractable Nausea presence: unspecified Qualified Code(s): R11.10 - Vomiting, unspecified Condition: Stable Disposition: HOME, SELF-CARE Instructions: Vomiting ([facility]) Prescriptions: Promethazine HCl [Phenergan 25 mg Supp.rect] 1 supp ME Q6H #12 supp.rect Referrals: MASSIEL SMITH FNP [Primary Care Provider] - Follow up as needed
[2019-03-12 05:53] VITALS: BP 149/101
== END 2019-03-12 05:53 | disposition home or self-care (01) ==
LOC: ER 01:09
DX: R11.2 Nausea with vomiting, unspecified (principal); R50.9 Fever, unspecified; R19.7 Diarrhea, unspecified; M79.10 Myalgia, unspecified site; F17.200 Nicotine dependence, unspecified, uncomplicated; I10 Essential (primary) hypertension
CPT/HCPCS: 99283; 96361; 96374; 96375; J1200; J2550; J7120; J0780